=== PATIENT | female | born 1960 | race Caucasian/White ===

== ENCOUNTER 2021-12-02 05:37 | Outpatient (CLI) | payer BC, OTHER ==
[~2021-12-02] VITALS: Ht 165.1 cm; Wt 111.1 kg
[2021-12-03] MEDS ORDERED: SIMV20TA26 PO (09:33)
[2021-12-03] MEDS ORDERED: LOSA50TA63 PO (09:33)
[2021-12-03] MEDS ORDERED: CITA20TA9 PO (09:33)
== END 2021-12-03 09:43 | disposition home or self-care (01) ==
LOC: PREOP 05:37
PROVIDERS: ATTEND Surgery
DX: Z01.818 Encounter for other preprocedural examination (principal)

== ENCOUNTER 2021-12-15 07:05 | Day surgery (SDC) | payer BC, OTHER ==
[~2021-12-15] VITALS: Ht 165.1 cm; Wt 111.1 kg
[~2021-12-15 07:05] MED LIST: CITA20TA9 PO; LOSA50TA63 PO; SIMV20TA26 PO
[2021-12-15] MEDS ORDERED: LACTATED RINGERS 1,000 ML IV STA (07:20)
[2021-12-15 07:27] VITALS: BP 164/76
[2021-12-15] MEDS ORDERED: PROPOFOL INJECTION 50 ML IV ONE (07:51)
--- NOTE | 2021-12-15 07:51 | Progress Note-Pre Operative ---
Pre-Operative Progress Note Date of Available H&P: Nov 16, 2021 Date H&P Reviewed: Dec 15, 2021 Time H&P Reviewed: 07:50 History & Physical: H&P Reviewed, Patient Examed, No changes noted Pre-Operative Diagnosis: screening colonoscopy ROME HA DO Dec 15, 2021 07:51
[2021-12-15 08:15] VITALS: BP 121/66
--- NOTE | 2021-12-15 08:15 | Progress Note-Post Operative ---
Post-Operative Progess Note Surgeon (s)/Non Emergency Services Ambulance Driver (s) Surgeon ROME HA DO Non Emergency Services Ambulance Driver: na Pre-Operative Diagnosis screening colonoscopy Post-Operative Diagnosis ascending colon polyp Procedure & Operative Findings Date of Procedure 12/15/21 Procedure Performed/Findings colonoscopy c hot bx polypectomy Anesthesia Type per industrial recruiter Estimated Blood Loss Estimated blood loss (mL): na Specimens/Packing Specimens Removed ascending colon polyp ROME HA DO Dec 15, 2021 08:15
[2021-12-15 08:20] VITALS: BP 132/68
--- NOTE | 2021-12-15 09:30 | Discharge Inst-Simple/Standard ---
Discharge Inst-Standard Patient Instructions/Follow Up Plan of Care/Instructions/FU: 2 weeks beronica Activity as Tolerated: Yes Discharge Diet: Regular Diet ROME HA DO Dec 15, 2021 09:30
[2021-12-15 09:41] VITALS: BP 130/65
--- NOTE | 2021-12-15 11:03 | OPERATIVE REPORT ---
DATE OF SERVICE: 12/15/2021 PREOPERATIVE DIAGNOSIS: Screening colonoscopy. POSTOPERATIVE DIAGNOSIS: Ascending colon polyp. PROCEDURES PERFORMED: Colonoscopy with hot biopsy polypectomy. SURGEON: Rome Renee DO ANESTHESIA: Per LEGAL RESEARCHER. ESTIMATED BLOOD LOSS: None. COMPLICATIONS: None. INDICATIONS FOR PROCEDURE: The patient is a 61-year-old female needing screening colonoscopy. She understands the risks and benefits of the procedure and wishes to proceed. Consent was signed in the chart. DESCRIPTION OF PROCEDURE: The patient was taken to the endoscopy suite and placed in a left lateral recumbent position. A timeout was performed. Digital rectal exam was performed noting a small fibroepithelial polyp. Scope was inserted in the rectum, advanced all the way to the cecum with minimal difficulty. Prep was adequate. Scope was slowly retracted back. No polyps, masses or ulcerations in the cecum. In the ascending colon, a small polyp was present, where hot biopsy polypectomy was performed. Scope was then slowly and continuously retracted back. No polyps, masses or ulcerations within the remainder of the ascending, transverse, descending and sigmoid colon. Once in the rectum, scope was retroflexed noting no other pathology. Scope was returned to its normal position, slowly withdrawn until completely removed. The patient tolerated the procedure well without any complications. She was taken to the recovery room in stable condition. RECOMMENDATIONS: The patient will need a repeat colonoscopy in 5 years. Any issues before that be seen at that time. She will follow up on pathology in two weeks. Job ID: [id number] DocumentID: [id number] Dictated Date: 12/15/2021 08:16:56 [employer]idential Solar Sales Consultant Date: 12/15/2021 11:03:31 Dictated By: ROME RENEE DO
--- NOTE | 2021-12-15 12:16 | Anesthesia-General Post-Op ---
MAC Patient Condition Mental Status/LOC: Same as Preop Cardiovascular: Satisfactory Nausea/Vomiting: Absent Respiratory: Satisfactory Pain: Controlled Complications: Absent Post Op Complications Complications None Follow Up Care/Instructions Patient Instructions None needed. Anesthesiology Discharge Order Discharge Order Patient is doing well, no complaints, stable vital signs, no apparent adverse anesthesia problems. No complications reported per nursing. RACHAEL YOUNG CRNA Dec 15, 2021 12:16
== END 2021-12-15 09:52 | disposition home or self-care (01) ==
LOC: ENDO 07:05
PROVIDERS: ATTEND Surgery
DX: Z12.11 Encounter for screening for malignant neoplasm of colon (principal); K63.5 Polyp of colon; E66.01 Morbid (severe) obesity due to excess calories; Z68.41 Body mass index [BMI] 40.0-44.9, adult
CPT/HCPCS: 88305